=== PATIENT | male | born 1940 | race Caucasian/White ===

== ENCOUNTER 2018-02-22 07:13 | Day surgery (SDC) | payer OTHER, BC ==
[2018-02-17 17:44] VITALS: BMI 24.7
[2018-02-22] MEDS ORDERED: PROPOFOL 20 ML ONE ×2 (07:18)
[2018-02-22 07:44] VITALS: TEMP 97.8
[2018-02-22 09:52] VITALS: BP 112/60; PULSE 56
--- NOTE | 2018-02-24 14:16 | PATH ---
Surgical Pathology Report Patient Name: NISSA ANGUIANO [facility]. Rec. #: [id number] /Age/Gender: 1940 (Age: 77) / M Account: [id number] Location: [facility]-ENDOSCOPY Taken: 02/22/2018 Received: 02/22/2018 Reported: 02/24/2018 Physicians: Geraldo Wong M.D. Specimen(s) Received A: PROXIMAL LEFT COLON B: BX SIGMOID C: BX RECTUM Clinical History History of colon cancer Postoperative diagnosis: Polyp Final Diagnosis A. PROXIMAL COLON, LEFT, POLYPECTOMY: TUBULAR ADENOMA. B. SIGMOID COLON, POLYPECTOMY: TUBULAR ADENOMA. C. RECTUM, POLYPECTOMY: HYPERPLASTIC POLYP. Electronically Signed Dalila Fraser M.D. Gross Description A. Received in formalin, labeled "proximal left colon" is a basilio, irregular portion of soft tissue measuring 0.5 cm. in greatest dimension. The specimen is submitted in toto in one cassette. B. Received in formalin, labeled "sigmoid" are 2 basilio, irregular portions of soft tissue averaging 0.5 cm. in greatest dimension. The specimens are submitted in toto in one cassette. C. Received in formalin, labeled "rectum" are 2 basilio, irregular portions of soft tissue measuring 0.2 and 0.4 cm. in greatest dimension. The specimens are submitted in toto in one cassette. 02/22/201802/22/2018
== END 2018-02-22 09:40 | disposition home or self-care (01) ==
LOC: FASU-ENDO 07:13
PROVIDERS: ATTEND Internal Medicine Gastroenterology
PROC: 0D5P8ZZ Destruction of Rectum, Via Natural or Artificial Opening Endoscopic (ICD-10-PCS; 2018-02-22)
PROC: 0DBP8ZX Excision of Rectum, Via Natural or Artificial Opening Endoscopic, Diagnostic (ICD-10-PCS; 2018-02-22)
PROC: 0DBM8ZX Excision of Descending Colon, Via Natural or Artificial Opening Endoscopic, Diagnostic (ICD-10-PCS; principal; 2018-02-22 08:00)
PROC: 0DBN8ZX Excision of Sigmoid Colon, Via Natural or Artificial Opening Endoscopic, Diagnostic (ICD-10-PCS; 2018-02-22 08:00)
DX: Z86.010 Personal history of colon polyps (principal); K55.20 Angiodysplasia of colon without hemorrhage; D12.4 Benign neoplasm of descending colon; D12.5 Benign neoplasm of sigmoid colon; D12.8 Benign neoplasm of rectum
CPT/HCPCS: 88305-TC

== ENCOUNTER 2022-01-25 08:00 | Day surgery (SDC) | payer BC, OTHER ==
[2022-01-22 10:44] VITALS: BMI 25.8
[2022-01-25 09:45] VITALS: TEMP 97.4
[2022-01-25 09:59] VITALS: BP 108/54; PULSE 72
== END 2022-01-25 10:25 | disposition home or self-care (01) ==
LOC: FASU-ENDO 08:00
PROVIDERS: ATTEND Internal Medicine Gastroenterology
PROC: 0DBP8ZX Excision of Rectum, Via Natural or Artificial Opening Endoscopic, Diagnostic (ICD-10-PCS; principal; 2022-01-25 09:22)
DX: Z85.048 Personal history of other malignant neoplasm of rectum, rectosigmoid junction, and anus (principal); K62.1 Rectal polyp; K91.89 Other postprocedural complications and disorders of digestive system
CPT/HCPCS: 88305-TC